=== PATIENT | male | born 1985 | race Caucasian/White ===

== ENCOUNTER 2017-03-21 22:40 | Emergency (ER) | payer MEDICAID ==
[~2017-03-21] VITALS: Ht 172.7 cm; Wt 108.2 kg
[2017-03-21 22:46] VITALS: BP 138/80
--- NOTE | 2017-03-21 23:12 | NUR ---
Thien vizcaino in [facility] - 03/21/17 at 2313 by MARYANN PATIENT AMBULATED TO BED 8 AT THIS TIME.
--- NOTE | 2017-03-21 23:13 | NUR ---
PATIENT AMBULATED TO BED 6.
--- NOTE | 2017-03-21 23:22 | NUR ---
DR. SHAH AT BEDSIDE
--- NOTE | 2017-03-21 23:25 | NUR ---
PATIENT PRESENTS TO ED WITH SOB FOR 3 DAYS , LAST MONDAY HAD EPISODE OF SEIZURE UNWITNESSED .PT STATES I DONT TAKE MEDICINE . DENIES N/V/D; SKIN IS PINK/WARM/DRY; AAOX4 WITH EVEN AND STEADY GAIT; LUNGS CLEAR BL; HR EVEN AND REGULAR; PT DENIES ANY FEVER, CP, OR COUGH AT THIS TIME; PATIENT STATES PAIN OF 7/10 AT THIS TIME; PATIENT POSITIONED FOR COMFORT; HOB ELEVATED; BEDRAILS UP X2; BED DOWN.
[2017-03-21] MEDS ORDERED: KETOROLAC 60 MG/2 ML VIAL IM ONE (23:35)
--- NOTE | 2017-03-21 23:58 | NUR ---
FAMILY AT BEDSIDE PT IN CT
--- NOTE | 2017-03-22 00:09 | NUR ---
PT BACK IN BED AAO, NO SOB, FAMILY AT BEDSIDE
--- NOTE | 2017-03-22 00:40 | NUR ---
PT RESTING WAITING FOR THE RESULT NO SOB NOTED PT SAID I FEEL MUCH BETTER, ORANGE JUICE GIVEN
[2017-03-22] MEDS ORDERED: MECLIZINE 25 MG TAB PO ONE (00:50)
--- NOTE | 2017-03-22 01:05 | NUR ---
DR. SHAH AT BEDSIDE
[2017-03-22 01:24] VITALS: BP 130/74
--- NOTE | 2017-03-22 01:25 | NUR ---
ADDRESS/PHONE NUMBER TO [facility] FAMILY PHYSICIAN GIVEN AND INSTRUCTED TO FOLLOW UP AND PT AGREED WITH IT.
--- NOTE | 2017-03-22 01:26 | NUR ---
Patient discharged with v/s stable. Written and verbal after care instructions given and explained. Patient alert, oriented and verbalized understanding of instructions. Ambulatory with steady gait. All questions addressed prior to discharge. ID band removed. Patient advised to follow up with PMD. Rx of MECLIZINE AND MOTRIN given. Patient educated on indication of medication including possible reaction and side effects. Opportunity to ask questions provided and answered.
== END 2017-03-22 01:26 | disposition home or self-care (01) ==
LOC: MED 22:40
DX: R42 Dizziness and giddiness (principal); R51 Headache; R03.0 Elevated blood-pressure reading, without diagnosis of hypertension
CPT/HCPCS: 70450; 71010; 96372; 99284; J1885; J8597